=== PATIENT | female | born 1975 | race Caucasian/White ===

== ENCOUNTER 2025-02-22 05:27 | Day surgery (SDC) | payer OTHER ==
[2025-02-21 16:30] VITALS: BMI 30.2
[2025-02-22] MEDS ORDERED: ONDANSETRON 4 MG/2 ML VIAL IVPUSH PRN (09:41)
[2025-02-22] MEDS ORDERED: PHENAZOPYRIDINE HCL 100 MG TABLET (FP) ONE (13:18)
[2025-02-22] MEDS: PHENAZOPYRIDINE HCL 100 MG TABLET (FP) PO ONE (13:30)
[2025-02-22] MEDS ORDERED: LIDOCAINE 1%/EPI 1:100000 (20 ML MULTI DOSE VIAL) ONE (14:55)
[2025-02-22] MEDS ORDERED: BUPIVACAINE HCL/PF 0.5% (5MG/ML) 10 ML VIAL ONE (14:55)
[2025-02-22] MEDS ORDERED: INDOCYANINE GREEN 25 MG/10 ML VIAL IVPUSH ONE (14:56)
[2025-02-22] MEDS ORDERED: PROPOFOL 20 ML ONE (15:31)
[2025-02-22] MEDS ORDERED: MIDAZOLAM HCL 2 MG/2 ML SINGLE DOSE VIAL ONE (15:31)
[2025-02-22] MEDS ORDERED: ROCURONIUM BROMIDE 50 MG/5 ML SYRINGE ONE ×2 (15:31→16:33)
[2025-02-22] MEDS ORDERED: LIDOCAINE HCL/PF 2% SDV 5ML VIAL ONE (15:33)
[2025-02-22] MEDS ORDERED: HEPARIN NA (PORCINE) 5,000 UNITS/ML 1ML VIAL ONE (15:38)
[2025-02-22] MEDS: HEPARIN NA (PORCINE) 5,000 UNITS/ML 1ML VIAL SQ ONE ×2 (15:56→18:10)
[2025-02-22] MEDS ORDERED: ceFAZolin SODIUM 1 GM VIAL ONE (16:03)
[2025-02-22] MEDS: ceFAZolin SODIUM 1 GM VIAL IVPB ONE ×2 (16:07)
[2025-02-22] MEDS: BUPIVACAINE HCL/PF 0.5% (5 MG/ML) 30 ML VIAL IJ ONE ×2 (16:14)
[2025-02-22] MEDS ORDERED: ONDANSETRON 4 MG/2 ML VIAL ONE ×2 (16:16→17:26)
[2025-02-22] MEDS ORDERED: DEXAMETHASONE SOD PHOSPHATE 4 MG/1 ML VIAL ONE (16:16)
[2025-02-22] MEDS ORDERED: HYDROmorphone HCl 2 MG/ML VIAL ONE (17:25)
[2025-02-22] MEDS ORDERED: NEOSTIGMINE METHYLSULFATE 0.5 MG/1 ML - 10 ML MDV ONE (17:26)
[2025-02-22] MEDS ORDERED: GLYCOPYRROLATE 0.2 MG/1 ML VIAL ONE ×2 (17:26→17:34)
[2025-02-22] MEDS ORDERED: ACETAMINOPHEN INJECTION 100 ML ONE (17:29)
[2025-02-22] MEDS ORDERED: SUGAMMADEX SODIUM 200 MG/2 ML VIAL ONE (17:47)
[2025-02-22] MEDS: CEFAZOLIN 2 GM/D5W 2 GM/50 ML ML IVPB ONE (18:08)
[2025-02-22] MEDS: ACETAMINOPHEN 1000 MG/100 ML BAG IVPB ONE (18:09)
[2025-02-22] MEDS: LACTATED RINGERS SOLUTION 1,000 ML IV SCH (18:10)
[2025-02-22] MEDS: oxyCODONE HCL 5 MG TABLET PO PRN (23:52)
[2025-02-23] MEDS: TRANEXAMIC ACID 1000 MG/10 ML VIAL IVPUSH ONE (07:11)
[2025-02-23 08:15] VITALS: RESP 17
[2025-02-23 12:05] VITALS: BP 118/60; PULSE 84; TEMP 98.1
== END 2025-02-23 13:25 | disposition home or self-care (01) ==
LOC: JASUSAT 05:27 → JASU-SURG 05:27 → J3W 20:38 → JASUSAT 02-23 13:25
PROVIDERS: ATTEND Obstetrics & Gynecology Gynecologic Oncology
PROC: 0UT7FZZ Resection of Bilateral Fallopian Tubes, Via Natural or Artificial Opening With Percutaneous Endoscopic Assistance (ICD-10-PCS; 2025-02-22)
PROC: 8E0W4CZ Robotic Assisted Procedure of Trunk Region, Percutaneous Endoscopic Approach (ICD-10-PCS; 2025-02-22)
PROC: 0UT9FZZ Resection of Uterus, Via Natural or Artificial Opening With Percutaneous Endoscopic Assistance (ICD-10-PCS; principal; 2025-02-22 14:30)
DX: N92.0 Excessive and frequent menstruation with regular cycle (principal); N80.03 Adenomyosis of the uterus; N72 Inflammatory disease of cervix uteri
CPT/HCPCS: 58552; S2900; 81025; 86850; 86900; 86901; 88307-TC; 94760